=== PATIENT | female | born 1960 | race Hispanic/Latino ===

== ENCOUNTER 2017-03-11 07:31 | Day surgery (SDC) | payer BC ==
[~2017-03-11] VITALS: Ht 160 cm; Wt 68.9 kg
[~2017-03-11 07:31] MED LIST: ASPIRIN81 MG PO; FARXIGA10 MG PO; MULTI VIT PO
[2017-03-11 13:01] VITALS: BP 118/66
== END 2017-03-11 12:25 | disposition home or self-care (01) | DRG 951 ==
LOC: ENDO 07:31
PROVIDERS: ATTEND Surgery
PROC: 0DJD8ZZ Inspection of Lower Intestinal Tract, Via Natural or Artificial Opening Endoscopic (ICD-10-PCS; principal; 2017-03-11)
DX: Z12.11 Encounter for screening for malignant neoplasm of colon (principal); E11.9 Type 2 diabetes mellitus without complications

== ENCOUNTER 2022-07-10 10:56 | Day surgery (SDC) | payer OTHER ==
[~2022-07-10] VITALS: Ht 160 cm; Wt 72.6 kg
[~2022-07-10 10:56] MED LIST changes: +AMOXICILLIN500 MG PO; +BAYER ASPIRIN E81 MG PO; +FLUOXETINE20 MG PO; +JARDIANCE25 MG PO; +LIPITOR10 M1 PO; +METFORMIN HCL1000 MG PO; +[UNRECOGNIZED DRUG - OTHER]
[2022-07-10] MEDS ORDERED: PERCOCET 5/321 COMBO PO ×3 (12:32→13:22)
[2022-07-10 14:20] VITALS: BP 109/68
== END 2022-07-10 14:40 | disposition home or self-care (01) | DRG 419 ==
LOC: ORM 10:56
PROVIDERS: ATTEND Surgery
PROC: 0FT44ZZ Resection of Gallbladder, Percutaneous Endoscopic Approach (ICD-10-PCS; principal; 2022-07-10)
DX: K80.10 Calculus of gallbladder with chronic cholecystitis without obstruction (principal); E11.9 Type 2 diabetes mellitus without complications; Z79.84 Long term (current) use of oral hypoglycemic drugs
CPT/HCPCS: J0131; J1610; Q9966